=== PATIENT | female | born 1965 | race Caucasian/White ===

== ENCOUNTER 2016-03-20 18:01 | Emergency (ER) | payer OTHER ==
[2016-03-20] MEDS ORDERED: ONDANSETRON 4 MG VIAL ONE (21:28)
[2016-03-20] MEDS ORDERED: SODIUM CHLORIDE 0.9% 1,000 ML ONE (21:29)
[2016-03-20] MEDS ORDERED: KETOROLAC 30 MG/ML VIAL ONE (21:29)
== END 2016-03-20 22:50 | disposition home or self-care (01) ==
LOC: ER 18:01
DX: R07.89 Other chest pain (principal); R05 Cough; F17.210 Nicotine dependence, cigarettes, uncomplicated
CPT/HCPCS: 36415; 76705; 80053; 81003; 83690; 85025; 96361; 96374; 96375